=== PATIENT | female | born 1940 | race American Indian/Alaskan Native ===

== ENCOUNTER 2021-07-18 15:14 | Inpatient (IN) | payer MEDICARE ==
--- NOTE | 2021-07-18 15:54 | XRay Report ---
CHEST 1 VIEW 07/18/2021 3:28 PM INDICATION / CLINICAL INFORMATION: dyspnea hx of chf. COMPARISON: None available. FINDINGS: SUPPORT DEVICES: None. HEART / MEDIASTINUM: Cardiomegaly. LUNGS / PLEURA: No significant pulmonary or pleural abnormality. No pneumothorax. ADDITIONAL FINDINGS: Severe DJD of bilateral glenohumeral joints. IMPRESSION: 1. Cardiomegaly without radiographic evidence of edema. Signer Name: Carlos Land MD Signed: 07/18/2021 3:50 PM Workstation Name: [email or web address]
[2021-07-18 16:16] LABS: Basophils % (Auto) 0.6 % (0.0-1.8); Eosinophils # (Auto) 0.1 K/mm3 (0.0-0.4); Eosinophils % (Auto) 1.4 % (0.0-4.3); Hematocrit 29.7 % (30.3-42.9); Hemoglobin 9.5 gm/dl (10.1-14.3); Lymphocytes # (Auto) 1.3 K/mm3 (1.2-5.4); Lymphocytes % (Auto) 20.6 % (13.4-35.0); Mean Corpuscular HGB Conc 32 % (30-34); Mean Corpuscular Volume 86 fl (79-97); Platelet Count 174 K/mm3 (140-440); Red Blood Count 3.45 M/mm3 (3.65-5.03); Red Cell Distribution Width 14.6 % (13.2-15.2)
[2021-07-18] MEDS ORDERED: traMADol 50 MG TAB PO PRN (16:29)
[2021-07-18] MEDS ORDERED: ALBUTEROL 2.5 MG/3 ML NEBU IH PRN (16:29)
[2021-07-18] MEDS ORDERED: HYDROmorphone 1 MG/1 ML INJ IV PRN (16:29)
[2021-07-18] MEDS ORDERED: ONDANSETRON 4 MG/2 ML INJ IV PRN (16:29)
[2021-07-18] MEDS ORDERED: ACETAMINOPHEN 325 MG TAB PO PRN ×2 (16:29)
[2021-07-18] MEDS ORDERED: oxyCODONE /ACETAMINOPHEN 5-325MG TAB PO PRN (16:29)
--- NOTE | 2021-07-18 16:29 | History and Physical Report ---
History of Present Illness Chief complaint: I am having pain in my chest History of present illness: 81 YO Female with HTN, OA presents ED for evaluation. Patient reports "my chest is hurting". Patient states that she experienced sudden onset pain in her chest which lasted for about 45 minutes. Patient states that pain is 7/10, constant, worsened with exertion, relieved with rest, associated with shortness of breath. EMS was notified and upon arrival the patient was found to be in distress and subsequent transported to [facility] for further care and evaluation of the aforementioned symptoms. The patient was seen and evaluated in the emergency department. All lab and imaging studies reviewed. Patient found to have angina, as well as clinical system consistent with diastolic CHF. Patient placed in observation status admitted to medical floor due to increased risk of worsening symptoms. Cardiology team consulted in ED. Patient denies fever, chills, productive cough, skin rash, recent contact, or known exposure to COVID- 19. No prior admission for review. No medication listed at time of admission for reconciliation. Advanced care planning conducted in ED. Past History Past Medical History: arthritis, hypertension Past Surgical History: bowel surgery Social history: single. denies: smoking, alcohol abuse, prescription drug abuse Family history: diabetes, hypertension Medications and Allergies Allergies Allergy/AdvReac Type Severity Reaction Status Date / Time codeine AdvReac Unknown Verified 07/18/21 15:20 Review of Systems Constitutional: no weight loss, no weight gain, no fever, no sweats Ears, nose, mouth and throat: no ear pain, no ear discharge, no decreased hearing, no nose pain, no nasal discharge Breasts: no change in shape, no swelling, no mass Cardiovascular: chest pain, shortness of breath, no orthopnea, no palpitations, no edema Respiratory: no cough, no excessive sputum, no hemoptysis Gastrointestinal: no abdominal pain, no nausea, no vomiting, no diarrhea, no constipation, no change in bowel habits Genitourinary Female: no pelvic pain, no flank pain, no dysuria, no urinary frequency, no urgency Rectal: no pain, no incontinence, no bleeding Musculoskeletal: no neck stiffness, no neck pain, no shooting arm pain, no arm numbness/tingling Integumentary: no rash, no pruritis, no redness, no sores, no wounds, no jaundice Neurological: no head injury, no transient paralysis, no weakness, no parathesias, no numbness, no seizures, no syncope, no tremors Psychiatric: no anxiety, no change in sleep habits, no sleep disturbances, no hypersomnia, no change in appetite, no change in libido, no suicidal ideation Endocrine: no cold intolerance, no polyphagia, no polydipsia, no flushing Hematologic/Lymphatic: no easy bruising, no easy bleeding Allergic/Immunologic: no urticaria, no allergic rhinitis, no wheezing Exam - Constitutional Vitals: Temp Pulse Resp BP Pulse Ox 97.7 F 64 19 177/71 100 07/18/21 15:15 07/18/21 15:20 07/18/21 15:20 07/18/21 15:20 07/18/21 16:03 General appearance: Present: mild distress - EENT Eyes: Present: PERRL ENT: hearing intact, clear oral mucosa - Neck Neck: Present: supple, normal ROM - Respiratory Respiratory effort: normal Respiratory: bilateral: CTA - Cardiovascular Heart Sounds: Present: S1 & S2. Absent: rub, click - Extremities Extremities: pulses symmetrical, No edema Peripheral Pulses: within normal limits - Abdominal General gastrointestinal: Present: soft, non-tender, non-distended, normal bowel sounds Female genitourinary: Present: normal - Integumentary Integumentary: Present: clear, warm, dry - Musculoskeletal Musculoskeletal: gait normal, strength equal bilaterally - Psychiatric Psychiatric: appropriate mood/affect, intact judgment & insight - Neurologic Neurologic: CNII-XII intact, moves all extremities Results - Labs CBC & Chem 7: 07/18/21 15:56 07/18/21 15:56 Labs: Abnormal lab results 07/18/21 Range/Units 15:56 RBC 3.45 L (3.65-5.03) M/mm3 Hgb 9.5 L (10.1-14.3) gm/dl Hct 29.7 L (30.3-42.9) % [place] % (Auto) 15.0 H (0.0-7.3) % [place] # (Auto) 1.0 H (0.0-0.8) K/mm3 Assessment and Plan - Patient Problems (1) Angina at rest Status: Acute Plan to address problem: ACS protocol: Serial cardiac enzymes, EKG, telemetry, morphine, supplemental oxygen, nitro, aspirin, cardiology team consulted (2) Diastolic CHF Status: Acute Qualifiers: Heart failure chronicity: acute Qualified Code(s): I50.31 - Acute diastolic (congestive) heart failure Plan to address problem: Blood pressure control, strict I/O, monitor M, daily weight, afterload reduction, echocardiogram ordered and is pending at time of admission (3) Osteoarthritis Status: Acute Plan to address problem: Pain control, supportive care. (4) DVT prophylaxis Status: Acute Plan to address problem: SCDs bilateral lower extremities while in bed (5) Advance care planning Status: Acute Plan to address problem: Disease education conducted, care plan discussed, diagnoses discussed, prognosis discussed, patient is full code, patient knowledges understanding and agreement with care plan, +30 minutes.
--- NOTE | 2021-07-18 16:38 | Emergency Department Report ---
ED Chest Pain HPI - General Chief Complaint: Weakness Stated Complaint: MALAISE Time Seen by Provider: 07/18/21 15:20 Source: patient, EMS Mode of arrival: Stretcher Limitations: No Limitations - History of Present Illness Initial Comments: Chief complaint: Chest pain shortness of breath HPI: This is an 81-year-old female with history of hypertension, diverticulitis who presents with chest pain shortness of breath paresthesias. Sudden onset this afternoon chest tightness central chest which lasted 30 to 45 minutes. Patient also has associated shortness of breath and tingling in her hands and feet. She had 2 previous hospitalizations since March for similar complaints. She was admitted to [facility] 1 week ago. She received echocardiogram and ultrasound of the neck. She was evaluated Raghav Taylor on previous occasion. After discharge from hospital last week, she was referred to local company [employer] outpatient setting. Her last stress test cardiac stress test 2017. She required stress test for cardiac clearance prior to total knee replacement. She has been vaccinated against COVID-19 including booster shot. She lives with her daughter. Her daughter has chronic illness. Daughter has history of end- stage renal disease on hemodialysis. Mrs. Alvarez unable to take aspirin with history of diverticulitis. MD Complaint: chest pain -: Sudden, This afternoon Onset: during rest Pain Location: substernal Severity: moderate Severity scale (0 -10): 0 Quality: tightness Consistency: now resolved Treatments Prior to Arrival: other (EMS transportation) - Related Data Allergies Allergy/AdvReac Type Severity Reaction Status Date / Time codeine AdvReac Unknown Verified 07/18/21 15:20 Heart Score - HEART Score History: Moderately suspicious EKG: Non-specific Age: > 65 Risk factors: 1-2 risk factors Troponin: < normal limit HEART Score: 5 - EKG Read Time Time EKG Completed: 15:30 EKG Read Time: 15:30 - Critical Actions Critical Actions: 4-6 pts:12-16.6% risk of adverse cardiac event. Should be admitted ED Review of Systems ROS: Stated complaint: MALAISE Other details as noted in HPI Comment: All other systems reviewed and negative Constitutional: denies: chills, fever, malaise Respiratory: shortness of breath. denies: cough Cardiovascular: chest pain Gastrointestinal: denies: abdominal pain, nausea, vomiting Neurological: paresthesias ED Past Medical Hx - Past Medical History Previous Medical History?: Yes Hx Hypertension: Yes Additional medical history: Diverticulitis - Surgical History Past Surgical History?: Yes Additional Surgical History: Colon resection status post diverticulitis. Left total knee replacement - Family History Family history: hypertension - Social History Smoking Status: Never Smoker Substance Use Type: None ED Physical Exam - General Limitations: No Limitations General appearance: alert, in no apparent distress - Head Head exam: Present: atraumatic, normocephalic - Eye Eye exam: Present: normal appearance - ENT ENT exam: Present: mucous membranes moist - Neck Neck exam: Present: normal inspection, full ROM - Respiratory Respiratory exam: Present: normal lung sounds bilaterally. Absent: respiratory distress, wheezes, rales, rhonchi - Cardiovascular Cardiovascular Exam: Present: regular rate, normal rhythm, normal heart sounds. Absent: systolic murmur, diastolic murmur, rubs, gallop - GI/Abdominal GI/Abdominal exam: Present: soft, normal bowel sounds. Absent: distended, tenderness, guarding, rebound - Extremities Exam Extremities exam: Present: normal inspection - Neurological Exam Neurological exam: Present: alert, oriented X3 - Psychiatric Psychiatric exam: Present: normal affect, normal mood - Skin Skin exam: Present: warm, dry, intact, normal color. Absent: rash ED Course Vital Signs 07/18/21 07/18/21 07/18/21 15:15 15:20 16:03 Temperature 97.7 F Pulse Rate 64 64 Respiratory 14 19 Rate Blood Pressure 162/72 177/71 [Right] O2 Sat by Pulse 99 100 100 Oximetry ED Medical Decision Making - Lab Data Result diagrams: 07/18/21 15:56 07/18/21 15:56 - EKG Data -: EKG Interpreted by Me EKG shows normal: sinus rhythm Rate: normal - EKG Data 07/18/21 16:38 EKG obtained 1530 EKG interpreted by me Rate 70 bpm normal sinus rhythm normal axis normal intervals no ST elevation nonischemic T wave pattern - Radiology Data Radiology results: report reviewed Patient Name: EL RICHARDSON Gender: Female Date of : 1940 Home Phone: Referring Provider: JACOB FITZGERALD Organization: [facility] Accession Number: [id number] Requested Date: July 18, 2021 15:20 Report Status: Final Requested Procedure: 1 Procedure Description: XR chest 1V ap Modality: XR Findings Reporting MD: Carlos Land Dictation Time: July 18, 2021 14:50 Media Clerk: Not available Dictaphone Typist Date: CHEST 1 VIEW 07/18/2021 3:28 PM INDICATION / CLINICAL INFORMATION: dyspnea hx of chf. COMPARISON: None available. FINDINGS: SUPPORT DEVICES: None. HEART / MEDIASTINUM: Cardiomegaly. LUNGS / PLEURA: No significant pulmonary or pleural abnormality. No pneumothorax. ADDITIONAL FINDINGS: Severe DJD of bilateral glenohumeral joints. IMPRESSION: 1. Cardiomegaly without radiographic evidence of edema. Signer Name: Carlos Land MD Signed: 07/18/2021 2:50 PM Workstation Name: [email or web address] - Medical Decision Making Clinical impression: acute coronary syndrome: No persistent pain to indicate pulmonary embolism. Patient's pain now resolved. Will need inpatient evaluation heart score 5. Work-up reveals: Cardiomegaly on chest radiograph, incidental finding of severe DJD of the glenohumeral joints bilaterally Chronic kidney disease GFR 39, troponin negative, equivocal BNP level Mrs. Richardson is admitted to hospitalist service Critical care attestation.: If time is entered above; I have spent that time in minutes in the direct care of this critically ill patient, excluding procedure time. ED Disposition Clinical Impression: Acute coronary syndrome, Cardiomyopathy, Chronic kidney disease Disposition: ADMITTED INPATIENT Is pt being admited?: Yes Does the pt Need Aspirin: No Condition: Stable
[2021-07-18 16:44] LABS: BUN/Creatinine Ratio 19; Blood Urea Nitrogen 25 mg/dL (7-17); Calcium 9.1 mg/dL (8.4-10.2); Hemolysis Index 2
[2021-07-19 06:27] LABS: Basophils % (Auto) 0.6 % (0.0-1.8); Eosinophils # (Auto) 0.1 K/mm3 (0.0-0.4); Hematocrit 26.9 % (30.3-42.9); Hemoglobin 8.8 gm/dl (10.1-14.3); Lymphocytes # (Auto) 1.2 K/mm3 (1.2-5.4); Mean Corpuscular HGB Conc 33 % (30-34); Mean Corpuscular Volume 86 fl (79-97); Monocytes # (Auto) 0.8 K/mm3 (0.0-0.8); Monocytes % (Auto) 14.7 % (0.0-7.3); Platelet Count 160 K/mm3 (140-440); Red Blood Count 3.12 M/mm3 (3.65-5.03); Red Cell Distribution Width 14.4 % (13.2-15.2)
[2021-07-19 06:54] LABS: Calcium 8.7 mg/dL (8.4-10.2)
--- NOTE | 2021-07-19 11:51 | Consultation ---
History of Present Illness Consult date: 07/19/21 Consult reason: chest pain, shortness of breath History of present illness: Patient is an 81-year-old woman admitted with chest pain and shortness of breath. Her constellation of symptoms have a somewhat vague description, but she reports chest tightness associated with some headache and some lightheadedness. She states that this is a recurrence of similar symptoms for which she was hospitalized at [facility] last March, and again at [facility] 2 weeks ago. Both times she said echocardiograms were done, we have the report from last March at [facility] that showed left ventricular ejection fraction 70% and mild concentric left ventricle hypertrophy. She reports no cardiac ischemic work-up since a stress test done in 2018, at that time a preop assessment for knee surgery. Patient has no history of coronary artery disease, cardiac arrhythmias and no history of syncope. On her presentation to us her blood pressure was elevated in the 160s to 170s systolic. EKG was a sinus rhythm with PACs in a pattern of atrial bigeminy, but no ST or T wave changes of ischemia. Serial troponin levels x3 were negative. Chest x-ray shows moderate severity cardiomegaly, but clear lungs. She does have anemia with a hematocrit of 29, which is no different from her lab results at [facility]. Past History Past Medical History: anemia, arthritis, hypertension Past Surgical History: bowel surgery Social history: single. denies: smoking, alcohol abuse, prescription drug abuse Family history: diabetes, hypertension Medications and Allergies Allergies Allergy/AdvReac Type Severity Reaction Status Date / Time aspirin AdvReac Unknown Unknown Verified 07/19/21 11:52 codeine AdvReac Unknown Verified 07/19/21 07:58 Active Meds: Active Medications Acetaminophen (Acetaminophen 325 Mg Tab) 650 mg PO Q4H PRN PRN Reason: Pain MILD(1-3)/Fever >100.5/BROOKS Albuterol (Albuterol 2.5 Mg/3 Ml Nebu) 2.5 mg IH Q4HRT PRN PRN Reason: Shortness Of Breath Hydromorphone HCl (Hydromorphone 1 Mg/1 Ml Inj) 0.5 mg IV Q23H PRN PRN Reason: Pain , Severe (7-10) Ondansetron HCl (Ondansetron 4 Mg/2 Ml Inj) 4 mg IV Q8H PRN PRN Reason: Nausea And Vomiting Oxycodone/Acetaminophen (Oxycodone /Acetaminophen 5-325mg Tab) 1 tab PO Q16H PRN PRN Reason: Pain, Moderate (4-6) Sodium Chloride (Sodium Chloride 0.9% 10 Ml Flush Syringe) 10 ml IV BID BRAYAN Last Admin: 07/19/21 09:47 Dose: 10 ml Sodium Chloride (Sodium Chloride 0.9% 10 Ml Flush Syringe) 10 ml IV PRN PRN PRN Reason: LINE FLUSH Sodium Chloride (Sodium Chloride 0.9% 10 Ml Flush Syringe) 10 ml IV PRN PRN PRN Reason: LINE FLUSH Tramadol HCl (Tramadol 50 Mg Tab) 50 mg PO Q6H PRN PRN Reason: Pain, Moderate (4-6) Review of Systems Cardiovascular: chest pain, lightheadedness, shortness of breath, no orthopnea, no palpitations, no rapid/irregular heart beat, no edema, no syncope Physical Examination Vital Signs Temp Pulse Resp BP Pulse Ox 97.7 F 64 14 162/72 99 07/18/21 15:15 07/18/21 15:15 07/18/21 15:15 07/18/21 15:15 07/18/21 15:15 General appearance: no acute distress HEENT: Positive: PERRL Neck: Positive: neck supple Cardiac: Positive: Reg Rate and Rhythm Lungs: Positive: clear to auscultation Neuro: Positive: Grossly Intact Abdomen: Positive: Soft Female genitourinary: deferred Skin: Positive: Clear Extremities: Absent: edema Results 07/19/21 04:36 07/19/21 04:36 CBC 07/18/21 07/19/21 Range/Units 15:56 04:36 WBC 6.4 5.2 (4.5-11.0) K/mm3 RBC 3.45 L 3.12 L (3.65-5.03) M/mm3 Hgb 9.5 L 8.8 L (10.1-14.3) gm/dl Hct 29.7 L 26.9 L (30.3-42.9) % Plt Count 174 160 (140-440) K/mm3 Lymph # (Auto) 1.3 1.2 (1.2-5.4) K/mm3 [place] # (Auto) 1.0 H 0.8 (0.0-0.8) K/mm3 Eos # (Auto) 0.1 0.1 (0.0-0.4) K/mm3 Baso # (Auto) 0.0 0.0 (0.0-0.1) K/mm3 Comprehensive Metabolic Panel 07/18/21 07/19/21 Range/Units 15:56 04:36 Sodium 138 139 (137-145) mmol/L Potassium 4.0 3.8 (3.6-5.0) mmol/L Chloride 100.6 102.6 (98-107) mmol/L Carbon Dioxide 23 27 (22-30) mmol/L BUN 25 H 21 H (7-17) mg/dL Creatinine 1.3 H 1.2 (0.6-1.2) mg/dL Glucose 100 92 (65-100) mg/dL Calcium 9.1 8.7 (8.4-10.2) mg/dL EKG interpretations - Telemetry EKG Rhythm: Sinus Rhythm Assessment and Plan - Patient Problems (1) Chest pain Current Visit: Yes Status: Acute Plan to address problem: Patient has atypical chest pain associated with multiple constitutional symptoms of headache, fatigue and lightheadedness. The main objective findings uncontrolled hypertension with systolic blood pressures in the 170s, and a stable but chronic anemia hematocrit of 29. Chest x-ray shows cardiomegaly, but prior LV function assessment showed normal left ventricular systolic function. We will repeat an echocardiogram for left ventricular chamber size and systolic function. Further cardiac work-up with a Lexiscan thallium stress test in the a.m. We will optimize antihypertensive therapy in case part of her symptom complex may be due to uncontrolled hypertension. Recommend that you consider further evaluation of her anemia as a possible contributor to her chronic fatigue.
[2021-07-19] MEDS: VALSARTAN 40 MG TAB PO SCH ×2 (13:44→21:34)
[2021-07-19] MEDS: NITROGLYCERIN 2% OINT 1 GM TP SCH ×2 (13:45→19:05)
--- NOTE | 2021-07-19 14:03 | Progress Note ---
Assessment and Plan Assessment and plan: #Atypical chest pain -Troponin negative x3 -TTE and stress test ordered -Cardiology following, assistance appreciated #Hypertension -Patient reports blood pressure is above goal at home -home BP medications: hydralazine 100mg BID, coreg 25mg BID, olmesartan 40mg QHS -will continue with BP medications started by Cardiology : metoprolol 50 BID, valsartan 80mg BID #Hypothyroidism -will resume levothyroxine at home dose -will order TSH and free T4 to assess if could be cause of fatigue #Normocytic anemia -Iron studies ordered -Patient reports colonoscopy within the last 5 years with normal results -will transfuse for hemoglobin less than 7 #Osteoarthritis -Controlled, as needed NSAID History Interval history: No acute events overnight. Patient reports chronic fatigue. She also notices that she has headache, lightheadedness and chest pressure when her systolic blood pressures are greater than 180. She is currently chest pain-free. Hospitalist Physical - Physical exam Narrative exam: GENERAL: Well-developed well-nourished. In no acute distress. HEENT: Normocephalic. Atraumatic. NECK: Supple. CHEST/LUNGS: CTAB on room air HEART/CARDIOVASCULAR: RRR. No murmur, rubs or gallops appreciated. ABDOMEN: +BS. NT/ND. SKIN: No rashes noted. NEURO: No focal motor deficit. Follows all commands. MUSCULOSKELETAL: No joint effusion EXTREMITIES: edema of BLE R>L PSYCH: Cooperative. - Constitutional Vitals: Temp Pulse Resp BP Pulse Ox 98.4 F 60 18 150/54 97 07/19/21 11:56 07/19/21 11:56 07/19/21 11:56 07/19/21 13:44 07/19/21 11:56 General appearance: Present: no acute distress HEART Score - HEART Score EKG: Non-specific Age: > 65 Risk factors: 1-2 risk factors Troponin: Troponin T < 0.010 ng/mL (0.00-0.029) 07/18/21 23:07 Troponin: < normal limit - Critical Actions Critical Actions: 4-6 pts:12-16.6% risk of adverse cardiac event. Should be admitted Results - Labs CBC & Chem 7: 07/19/21 04:36 07/19/21 04:36 Labs: Laboratory Last Values WBC 5.2 K/mm3 (4.5-11.0) 07/19/21 04:36 RBC 3.12 M/mm3 (3.65-5.03) L 07/19/21 04:36 Hgb 8.8 gm/dl (10.1-14.3) L 07/19/21 04:36 Hct 26.9 % (30.3-42.9) L 07/19/21 04:36 MCV 86 fl (79-97) 07/19/21 04:36 MCH 28 pg (28-32) 07/19/21 04:36 MCHC 33 % (30-34) 07/19/21 04:36 RDW 14.4 % (13.2-15.2) 07/19/21 04:36 Plt Count 160 K/mm3 (140-440) 07/19/21 04:36 Lymph % (Auto) 23.0 % (13.4-35.0) 07/19/21 04:36 [place] % (Auto) 14.7 % (0.0-7.3) H 07/19/21 04:36 Eos % (Auto) 2.0 % (0.0-4.3) 07/19/21 04:36 Baso % (Auto) 0.6 % (0.0-1.8) 07/19/21 04:36 Lymph # (Auto) 1.2 K/mm3 (1.2-5.4) 07/19/21 04:36 [place] # (Auto) 0.8 K/mm3 (0.0-0.8) 07/19/21 04:36 Eos # (Auto) 0.1 K/mm3 (0.0-0.4) 07/19/21 04:36 Baso # (Auto) 0.0 K/mm3 (0.0-0.1) 07/19/21 04:36 Seg Neutrophils % 59.7 % (40.0-70.0) 07/19/21 04:36 Seg Neutrophils # 3.1 K/mm3 (1.8-7.7) 07/19/21 04:36 Sodium 139 mmol/L (137-145) 07/19/21 04:36 Potassium 3.8 mmol/L (3.6-5.0) 07/19/21 04:36 Chloride 102.6 mmol/L (98-107) 07/19/21 04:36 Carbon Dioxide 27 mmol/L (22-30) 07/19/21 04:36 Anion Gap 13 mmol/L 07/19/21 04:36 BUN 21 mg/dL (7-17) H 07/19/21 04:36 Creatinine 1.2 mg/dL (0.6-1.2) 07/19/21 04:36 Estimated GFR 52 ml/min 07/19/21 04:36 BUN/Creatinine Ratio 18 % 07/19/21 04:36 Glucose 92 mg/dL (65-100) 07/19/21 04:36 Calcium 8.7 mg/dL (8.4-10.2) 07/19/21 04:36 Troponin T < 0.010 ng/mL (0.00-0.029) 07/18/21 23:07 NT-Pro-B Natriuret Pep 494.4 pg/mL (0-900) 07/18/21 15:56 [place]/IV: Voiding Method External Female Catheter Active Medications - Current Medications Current Medications: Generic Name Dose Route Start Last Admin Trade Name Freq PRN Reason Stop Dose Admin Acetaminophen 650 mg 07/18/21 16:29 Acetaminophen 325 Mg Tab PO Q4H PRN Pain MILD(1-3)/Fever >100.5/BROOKS Albuterol 2.5 mg 07/18/21 16:29 Albuterol 2.5 Mg/3 Ml Nebu IH Q4HRT PRN Shortness Of Breath Aspirin 81 mg 07/20/21 10:00 Aspirin Ec 81 Mg Tab PO QDAY [facility] Hydromorphone HCl 0.5 mg 07/18/21 16:29 Hydromorphone 1 Mg/1 Ml Inj IV Q23H PRN Pain , Severe (7-10) Metoprolol Tartrate 25 mg 07/19/21 22:00 Metoprolol Tartrate 25 Mg Tab PO BID [facility] Nitroglycerin 1 inch 07/19/21 14:00 07/19/21 13:45 Nitroglycerin 2% Oint 1 Gm TP Not Given QIDNTG [facility] Protocol Ondansetron HCl 4 mg 07/18/21 16:29 Ondansetron 4 Mg/2 Ml Inj IV Q8H PRN Nausea And Vomiting Oxycodone/Acetaminophen 1 tab 07/18/21 16:29 Oxycodone /Acetaminophen 5-325mg Tab PO Q16H PRN Pain, Moderate (4-6) Sodium Chloride 10 ml 07/18/21 22:00 07/19/21 09:47 Sodium Chloride 0.9% 10 Ml Flush Syringe IV 10 ml BID BRAYAN Administration Sodium Chloride 10 ml 07/18/21 16:29 Sodium Chloride 0.9% 10 Ml Flush Syringe IV PRN PRN LINE FLUSH Sodium Chloride 10 ml 07/18/21 16:29 Sodium Chloride 0.9% 10 Ml Flush Syringe IV PRN PRN LINE FLUSH Tramadol HCl 50 mg 07/18/21 16:29 Tramadol 50 Mg Tab PO Q6H PRN Pain, Moderate (4-6) Valsartan 80 mg 07/19/21 13:00 07/19/21 13:44 Valsartan 40 Mg Tab PO 80 mg BID BRAYAN Administration
[2021-07-19] MEDS: METOPROLOL TARTRATE 25 MG TAB PO SCH (21:34)
[2021-07-20 05:22] LABS: Hematocrit 26.9 % (30.3-42.9); Hemoglobin 8.7 gm/dl (10.1-14.3)
[2021-07-20 05:42] LABS: Calcium 8.6 mg/dL (8.4-10.2)
[2021-07-20] MEDS ORDERED: LEVOTHYROXINE 150 MCG, LEVOTHYROXINE 25 MCG PO SCH (06:00)
[2021-07-20] MEDS: NITROGLYCERIN 2% OINT 1 GM TP SCH ×2 (07:03→11:55)
[2021-07-20] MEDS ORDERED: REGADENOSON 0.4 MG/5 ML INJ IV ONE (08:32)
[2021-07-20] MEDS ORDERED: FERROUS SULFATE 325 MG TAB PO SCH (10:00)
[2021-07-20] MEDS ORDERED: ASPIRIN EC 81 MG TAB PO SCH (10:00)
[2021-07-20 10:10] VITALS: BP 174/72
[2021-07-20] MEDS ORDERED: CLOPIDOGREL 75 MG TAB PO SCH (11:00)
[2021-07-20] MEDS: VALSARTAN 40 MG TAB PO SCH (11:54)
[2021-07-20] MEDS: METOPROLOL TARTRATE 25 MG TAB PO SCH (11:54)
--- NOTE | 2021-07-20 13:51 | Nuclear Medicine Report ---
APPROVED REPORT Exam: Nuclear Stress Test Indication: Chest pain Patient Location: [address] [place] [address] Room #: 471 Ht: 5 ft 5 in Wt: 179 lbs BSA: 1.89 m2 HR: 57 bpmBP: 168/66 mmHgBMI: 29.78 Rhythm: Sinus Bradycardia Stress Test Details Stress Test: Pharmacologic stress testing performed using 0.4 mg of regadenoson per 5 mL given IV over 10 seconds. Reason for pharmacologic stress test: physical limitation. HR Resting HR: 57 bpm Max HR Achieved: 88 bpm Max Heart Rate (APMHR): 137 bpm Target HR (85% APMHR): 116 bpm % of APMHR: 64 Recovery HR: 78 bpm BP Resting BP: 168/66 mmHg Max BP: 174/72 mmHg Recovery BP: 166/74 mmHg ECG Resting ECG: Sinus Rhythm Stress ECG: Sinus Rhythm ST Change: None Arrhythmia: None Recovery ECG: Sinus Rhythm Recovery ST Change: None Recovery Arrhythmia: None Clinical Reason for Termination: Completed protocol Stress Symptoms: None Stress ECG Conclusion No chest pain and no ST changes of ischemia with pharmacologic stress. Myocardial perfusion images dictated separately. NM EXAM: Myocardial Perfusion REST/STRESS Imaging Protocol: Rest Tc-99m/Stress Tc-99m 1 day Resting Data Rest SPECT myocardial perfusion imaging was performed in supine position 45 minutes following the intravenous injection of 10 mCi of Tc-99m Myoview. Time of rest injection: 739 Date: 07/20/2021 Pharmacologic Stress Pharmacologic stress test was performed by injecting Regadenoson 0.4 mg IV push followed by the intravenous injection of 28 mCi of Tc-99m Myoview. Time of stress injection: 937 Date: 07/20/2021 Study Data TID = 0.85. Perfusion Wall Motion Normal left ventricular systolic function, ejection fraction 70% Nuclear Conclusion ECG Findings: negative for ischemia Clinical Findings: negative for ischemia Nuclear Findings: negative for ischemia Left Ventricular Function: normal Risk Study: low Normal rest and stress perfusion images, normal left ventricular systolic function, ejection fraction 70% by gated SPECT analysis. Normal study. Conclusion No chest pain and no ST changes of ischemia with pharmacologic stress. Myocardial perfusion images dictated separately.
--- NOTE | 2021-07-20 13:58 | Progress Note ---
Assessment and Plan - Patient Problems (1) Chest pain Current Visit: Yes Status: Acute Plan to address problem: Patient has atypical chest pain associated with multiple constitutional symptoms of headache, fatigue and lightheadedness. Patient has undergone extensive cardiac work-up on this presentation. Today, she underwent a Lexiscan thallium stress test that showed normal myocardial perfusion, ejection fraction 70%. An echocardiogram confirmed normal left ventricular systolic function with ejection fraction 60%, mild to moderate concentric left ventricle hypertrophy. There was mild to moderate eccentric mitral regurgitation. There was moderate pulmonary hypertension. She is stable for discharge and continued outpatient work-up with her primary physical therapy technician. Subjective Date of service: 07/20/21 Interval history: Patient has no new cardiac complaints, remains stable sinus rhythm, no dysrhythmias reported on telemetry. Today, she underwent a Lexiscan thallium stress test that showed normal myocardial perfusion, ejection fraction 70%. An echocardiogram confirmed normal left ventricular systolic function with ejection fraction 60%, mild to moderate concentric left ventricle hypertrophy. There was mild to moderate eccentric mitral regurgitation. There was moderate pulmonary hypertension. Objective Vital Signs Temp Pulse Resp BP Pulse Ox 07/20/21 11:54 174/72 07/20/21 10:00 98 07/20/21 09:42 174/72 07/20/21 09:41 164/70 07/20/21 09:40 162/67 07/20/21 09:39 163/66 07/20/21 09:38 166/74 07/20/21 09:37 150/121 07/20/21 08:32 168/66 07/20/21 07:43 59 L 168/66 98 07/20/21 03:51 98.6 F 62 18 162/68 97 07/20/21 00:03 92.3 F L 65 18 151/54 96 07/19/21 22:00 98 07/19/21 19:39 99.0 F 64 18 167/53 97 07/19/21 16:05 98.6 F 63 18 146/60 96 07/19/21 15:59 72 - Physical Examination General: No Apparent Distress HEENT: Positive: PERRL Neck: Positive: neck supple Cardiac: Positive: Reg Rate and Rhythm Lungs: Positive: clear to auscultation Neuro: Positive: Grossly Intact Abdomen: Positive: Soft Skin: Positive: Clear Extremities: Absent: edema - Labs and Meds CBC 07/20/21 Range/Units 04:39 Hgb 8.7 L (10.1-14.3) gm/dl Hct 26.9 L (30.3-42.9) % Comprehensive Metabolic Panel 07/20/21 Range/Units 04:39 Sodium 139 (137-145) mmol/L Potassium 3.9 (3.6-5.0) mmol/L Chloride 102.9 (98-107) mmol/L Carbon Dioxide 24 (22-30) mmol/L BUN 19 H (7-17) mg/dL Creatinine 1.3 H (0.6-1.2) mg/dL Glucose 85 (65-100) mg/dL Calcium 8.6 (8.4-10.2) mg/dL
--- NOTE | 2021-07-20 14:20 | Discharge Summary ---
Providers - Providers Date of Admission: 07/19/21 14:24 Attending physician: LARRY SALINAS MD 07/18/21 Consult to Cardiac Rehabilitation [CONS] Routine Reason For Exam: Phase I 07/18/21 16:29 Consult to Cardiology [CONS] Routine Consulting Provider: LUCI MENCHACA Reason For Exam: angina/chf Primary care physician: JOSHUA MARTINEZ MD Hospitalization Condition: Stable Disposition: 30 STILL A PATIENT Exam - Constitutional Vitals: Temp Pulse Resp BP Pulse Ox 98.6 F 59 L 18 174/72 98 07/20/21 03:51 07/20/21 07:43 07/20/21 03:51 07/20/21 11:54 07/20/21 10:00 Plan Care Plan Goals: Please request the results of the stress test and echocardiogram to be sent to your primary care doctor. Your stress test was negative. Follow-up with your primary care doctor and Bookkeeping Clerk. Continue taking the iron supplements. It is best that you take them at least 5 hours after you have taken your levothyroxine (Synthroid). Follow up with: JOSHUA MARTINEZ MD [Primary Care Provider] - 7 Days Prescriptions: Valsartan [Diovan] 80 mg PO BID 30 Days #120 tablet Ferrous Sulfate [Feosol 325 MG tab] 325 mg PO QDAY 30 Days #30 tablet Metoprolol [Lopressor TAB] 25 mg PO BID 30 Days #60 tablet Clopidogrel [Plavix] 75 mg PO QDAY 30 Days #30 tablet
--- NOTE | 2021-07-20 14:31 | Electrocardiograph Report ---
[facility] Test Date: 2021-07-18 Test Time: 15:30:58 Pat Name: EL ARROYO Department: Room: A471 1 Gender: F Commercial Appraiser: KARLOS : 1940 Requested By: JACOB FITZGERALD Order Number: [id number] Reading MD: Rama Alexander Measurements Intervals [place] Rate: 68 P: 47 GA: 174 QRS: 65 QRSD: 88 T: 35 QT: 434 QTc: 464 Interpretive Statements Sinus rhythm Ventricular premature complex No previous ECG available for comparison Electronically Signed On 07-20-2021 14:31:01 EST by Rama Alexander
--- NOTE | 2021-07-20 14:37 | Electrocardiograph Report ---
[facility] Test Date: 2021-07-19 Test Time: 10:39:43 Pat Name: EL ARROYO Department: Room: A471 1 Gender: F Process Engineering Technician: XIAO : 1940 Requested By: INEZ BURT Order Number: [id number] Reading MD: Rama Alexander Measurements Intervals [place] Rate: 73 P: 41 TN: 164 QRS: 67 QRSD: 91 T: 52 QT: 432 QTc: 477 Interpretive Statements Sinus rhythm Frequent PACs in a pattern of atrial bigeminy Compared to ECG 07/18/2021 15:30:58 Atrial premature complex(es) now present Ventricular premature complex(es) no longer present Electronically Signed On 07-20-2021 14:36:33 EST by Rama Alexander
[2021-07-21] MEDS ORDERED: LEVOTHYROXINE 150 MCG TAB PO SCH (06:00)
[2021-07-21] MEDS ORDERED: LEVOTHYROXINE 25 MCG TAB PO SCH (06:00)
== END 2021-07-20 17:15 | disposition home or self-care (01) | DRG 291 ==
LOC: ED 15:14 → 4A 16:29 → OBSVTOIN 07-19 14:24
PROVIDERS: ADMIT Internal Medicine; ATTEND Student in an Organized Health Care Education/Training Program
DX: I11.0 Hypertensive heart disease with heart failure (principal); I50.31 Acute diastolic (congestive) heart failure; M19.90 Unspecified osteoarthritis, unspecified site; D64.9 Anemia, unspecified; I42.9 Cardiomyopathy, unspecified; E03.9 Hypothyroidism, unspecified; R07.89 Other chest pain; Z88.6 Allergy status to analgesic agent; Z83.3 Family history of diabetes mellitus; Z82.49 Family history of ischemic heart disease and other diseases of the circulatory system
CPT/HCPCS: 36415; 71045; 78452; 80048; 82728; 83550; 83880; 84439; 84443; 84484; 85014; 85018; 85025; 93005; 93010; 93017; 93306; G0378; A9502; C8929; J2785